=== PATIENT | male | born 1955 | race Caucasian/White ===

== ENCOUNTER 2024-04-03 11:20 | Inpatient (IN) | payer MEDICARE, OTHER, SELFPAY ==
[2024-04-03 03:06] VITALS: BMI 23.2
[2024-04-03 03:12] VITALS: BP 154/84
[2024-04-03 04:20] LABS: % Basophils 0.5 % (0-2); % Eosinophils 2.8 % (0-6); % Immature Granulocytes 0.2 % (0-0.5); % Lymphocytes 19.9 % (20.5-51.1); % Monocytes 8.5 % (1.7-9.3); % Neutrophils 68.1 % (42.2-75.2); Absolute Eosinophils 0.2 10^3/uL (0-0.7); Absolute Lymphocytes 1.2 10^3/uL (1.2-3.4); Absolute Monocytes 0.5 10^3/uL (0.1-0.6); Hemoglobin 15.9 g/dL (13.0-18.0); Mean Corp Hgb Conc. 35.3 g/dL (33.0-37.0); Mean Corpuscular Hgb 32.9 pg (27.0-31.0); Mean Platelet Volume 9.2 fL (7.4-10.4); Nucleated Red Blood Cells % 0 % (-); Platelet Count 176 10^3/uL (130-400); Red Blood Cell Count 4.84 10^6/uL (4.70-6.10); Red Cell Dist. Width 12.6 % (11.5-14.5); White Blood Cell Count 5.8 10^3/uL (4.8-10.8)
[2024-04-03 04:23] LABS: Urine Albumin Trace (Neg - Trace); Urine Bilirubin 1+ (Negative); Urine Character Clear (Clear); Urine Glucose Negative (Negative); Urine Ketone Trace (Negative); Urine Leukocyte Negative (Negative); Urine Nitrite Negative (Negative); Urine Occult Blood Negative (Negative); Urine Urobilinogen 1+ (Neg - 1+)
[2024-04-03 04:25] LABS: Urine Color Amber
[2024-04-03 04:29] LABS: ALT (SGPT) 14 U/L (0-50); AST (SGOT) 26 U/L (17-59); Albumin 4.6 g/dl (3.5-5.0); Alkaline Phosphatase 60 U/L (38-126); Blood Urea Nitrogen 27 mg/dl (9-20); Carbon Dioxide 29 mmol/L (22-30); Chloride 101 mmol/L (98-107); Estimated Creatinine Clearance 78 ml/min; Glucose 109 mg/dl (70-99); Lipase 66 U/L (23-300); Sodium 139 mmol/L (135-145); Total Bilirubin 1.1 mg/dl (0.2-1.3); Total Protein 6.9 g/dl (6.3-8.2); eGFR > 60.00
--- NOTE | 2024-04-03 06:22 | ED.GENMED ---
History of Present Illness
<Holli Queen MD, Resident - Last Filed: 04/03/24 10:27>
General
Chief Complaint: Abdominal Pain
Time Seen by Provider: 04/03/24 06:02
History of Present Illness
History of Present Illness:
68 year old male with history of bowel resection 4-5 years ago, HLD, CAD s/p stent placement, Parkinson's disease present to ED with diffuse abdominal pain more on the LLQ. Patient states that after bowel resection he has been having these bouts of
intermittent abdominal pain for around 4-5 hours couple days a week which subsides on its own. Patient states that pain started on last Tuesday, the pain was accompanies with nausea but no vomiting. The past last for 4-5 days with pain scale of 7/10.
Last night at 10 pm the pain restarted and was 9/10, he felt nauseas as well. This is what prompted him to ED. He states that pain has improved now after passing gas. He takes Miralax daily for constipation. Patient has had extensive work up for
abdominal pain. He had colonoscopy which was unremarkable. Patient has seen Dr Pratt and a GI physician for abdominal pain. He was told since everything in the bowel looks good with no evidence of bowel necrosis or infection, the pain might be due
to Parkinson's disease.
Past History
<Holli Queen MD, Resident - Last Filed: 04/03/24 10:27>
Past History
ED Past Medical History: CAD, GERD, HTN, Hypercholesterolemia, [place], Other (Parkinson's), Other (BPH) and Other (Small bowel obstructions)
ED Past Surgical History: Bowel resection (Emergent laparotomy for closed loop obstruction 08/26/2018), Cardiac (PTCA with stent to the circumflex March 2006), Orthopedic and Other (Right inguinal hernia repair August 2018)
Social History
Tobacco: Non-smoker
Alcohol: Occasional
Personal:
Living: with family
Employment: Employed
Family History
Family History: Other (Noncontributory)
Review of Systems
<Holli Queen MD, Resident - Last Filed: 04/03/24 10:27>
Review of Systems
ABD/GI: Reports abdominal pain and nausea
Phy Exam
<Holli Queen MD, Resident - Last Filed: 04/03/24 10:27>
General Physical Exam
General Presentation: no apparent distress
Cardiovascular Exam
Cardiovascular Exam: regular rate/rhythm
Pulmonary Exam
Pulmonary Exam: lungs clear
Gastrointestinal Exam
Gastrointestinal Exam: normal bowel sounds, guarding and tender (LLQ)
Course
<Holli Queen MD, Resident - Last Filed: 04/03/24 10:27>
Orders/Labs/Results
Orders:
Orders
04/03/24 03:41
IV Insert/Care/Rem.- Treatment PRN
04/03/24 03:51
Complete Blood Count/With Diff Urgent
Comprehensive Metabolic Panel Urgent
Lipase Urgent
Urinalysis Reflex To Culture Urgent
Date Specimen was Collected: 04/03/24
Time Specimen was Collected: 03:42
04/03/24 03:54
Lactate Level [Lactic Acid] Urgent
04/03/24 06:38
Electrocardiogram (*1) Urgent
Reason for Study: Other
Other Reason for Exam: screeninig for CAD due to abdominal pain and risk factors
EKG- Treatment ONCE
0.9% Sodium Chloride 250 ml [Nss] 250 ml IV BOLUS
04/03/24 06:39
CT Abd/pel W Iv And Oral Contr Urgent
Comment:
Reason For Exam: possible bowel obstruction
Iohexol [Omnipaque] See Protocol PO NOW STA
04/03/24 06:55
0.9% Sodium Chloride 1000 ml [Nss] 1,000 ml IV BOLUS
Abnormal Lab Results
04/03/24
03:51
MCH 32.9 H pg
(27.0-31.0)
Lymphocytes % 19.9 L %
(20.5-51.1)
BUN 27 H mg/dl
(9-20)
Glucose 109 H mg/dl
(70-99)
Urine Ketones Trace A
(Negative)
Urine Bilirubin 1+ A
(Negative)
04/03/24 03:51
04/03/24 03:51
Vital Signs
Initial and Last Documented VS:
Initial Vital Signs
Temp Pulse Resp BP Pulse Ox
97.6 F 55 28 154/84 98
04/03/24 03:12 04/03/24 03:12 04/03/24 03:12 04/03/24 03:12 04/03/24 03:12
Last Documented Vital Signs
Temp Pulse Resp BP Pulse Ox
97.6 F 55 28 154/84 98
04/03/24 03:12 04/03/24 03:12 04/03/24 03:12 04/03/24 03:12 04/03/24 03:12
<Jeramy Gunter, DO - Last Filed: 04/03/24 07:00>
Orders/Labs/Results
Orders:
Orders
04/03/24 03:41
IV Insert/Care/Rem.- Treatment PRN
04/03/24 03:51
Complete Blood Count/With Diff Urgent
Comprehensive Metabolic Panel Urgent
Lipase Urgent
Urinalysis Reflex To Culture Urgent
Date Specimen was Collected: 04/03/24
Time Specimen was Collected: 03:42
04/03/24 03:54
Lactate Level [Lactic Acid] Urgent
04/03/24 06:38
Electrocardiogram (*1) Urgent
Reason for Study: Other
Other Reason for Exam: screeninig for CAD due to abdominal pain and risk factors
EKG- Treatment ONCE
0.9% Sodium Chloride 250 ml [Nss] 250 ml IV BOLUS
04/03/24 06:39
CT Abd/pel W Iv And Oral Contr Urgent
Comment:
Reason For Exam: possible bowel obstruction
Iohexol [Omnipaque] See Protocol PO NOW STA
04/03/24 06:55
0.9% Sodium Chloride 1000 ml [Nss] 1,000 ml IV BOLUS
Abnormal Lab Results
04/03/24
03:51
MCH 32.9 H pg
(27.0-31.0)
Lymphocytes % 19.9 L %
(20.5-51.1)
BUN 27 H mg/dl
(9-20)
Glucose 109 H mg/dl
(70-99)
Urine Ketones Trace A
(Negative)
Urine Bilirubin 1+ A
(Negative)
04/03/24 03:51
04/03/24 03:51
Vital Signs
Initial and Last Documented VS:
Initial Vital Signs
Temp Pulse Resp BP Pulse Ox
97.6 F 55 28 154/84 98
04/03/24 03:12 04/03/24 03:12 04/03/24 03:12 04/03/24 03:12 04/03/24 03:12
Last Documented Vital Signs
Temp Pulse Resp BP Pulse Ox
97.6 F 55 28 154/84 98
04/03/24 03:12 04/03/24 03:12 04/03/24 03:12 04/03/24 03:12 04/03/24 03:12
<Holli Queen MD, Resident - Last Filed: 04/03/24 10:27>
*Critical Care Note
Total Time (30-74mins, 75-104mins- exclusive of procedures): Not Applicable
<Holli Queen MD, Resident - Last Filed: 04/03/24 10:27>
Update Note
Update Note:
68 year old male presents to the ED with diffuse abdominal pain ongoing since 3 am, now has improved a little with passing flatus.
D/D : 1. bowel obstruction- more likely
2. Acute diverticulitis
3. CAD less likely
-CT scan of the abdomen and pelvis with IV contrast
-IV fluids given
IMPRESSION:
1). Low grade partial small bowel obstruction. There is small bowel anastomosis in the right lower quadrant which may be the site of partial obstruction.
2). There is large volume feces throughout the colon and rectum suggesting constipation.
3). Thoracolumbar scoliosis with multilevel lumbar degenerative disc disease
-Admit patient to the floors. Informed the hospitalist and colorectal surgeon.
ED Attending Note
<Holli Queen MD, Resident - Last Filed: 04/03/24 10:27>
-
Portions of this chart may have been created with voice recognition software.� Occasional wrong word or��sound alike� substitutions may have occurred due to the inherent limitations of voice recognition software.
<Jeramy Gunter DO - Last Filed: 04/03/24 07:00>
ED Attending Note
Patient seen and examined by attending physician: Yes
I performed the substantive portion of visit, reviewed & personally made and approve the management plan that is documented in note by myself or JAREK.: Yes
I performed a history and physical exam of patient and discussed management with resident, I reviewed resident's note and agree with documented findings and plan of care.: Yes
ED Attending Note:
Seen with family practice resident examined independently agree with assessment and plan 68-year-old male status post bowel resection by Dr. Pratt, had a follow-up laparoscopy turned to an open procedure by Dr. Denton, with no scar tissue
apparently, followed up with GI for scope, he is getting recurrent lower abdominal pains for years, most severe few hours ago no vomiting feeling a bit better now, plan will be labs CT scan
Discharge Plan
Departure
Patient Disposition: Admit
Date of Disposition: 04/03/24
Time of Disposition: 10:04
Presentation/result/management discussed w/ accepting MD/DO: Hospitalist
Discharge Problem:
Small bowel obstruction
Prescriptions:
No Action
tamsulosin 0.4 MG capsule
0.4 mg PO BID
Fish Oil 1 EACH capsule,delayed release(DR/EC)
4 cap PO DAILY
rasagiline 1 MG tablet
1 mg PO DAILY
Praluent Pen 75 MG/ML pen injector
150 mg SC Q2W
pantoprazole 40 MG tablet,delayed release (DR/EC)
40 mg PO HS
Refresh Classic (PF) 10 DROPS dropperette
1 drops BOTH EYES TID
multivitamin with folic acid [Tab-A-Goldie] 1 TABLET tablet
1 tab PO DAILY
amantadine HCl 100 MG capsule
200 mg PO BID
polyethylene glycol 3350 17 GRAMS powder in packet
17 grams PO DAILY@1500
loratadine 10 MG tablet
10 mg PO DAILY@1500
aspirin 81 MG tablet,delayed release (DR/EC)
81 mg PO HS
amlodipine 5 mg tablet
5 mg PO DAILY Qty: 30 11RF
carbidopa-levodopa 10-100 mg Tablet
1 tab PO TID
Referrals:
UNKNOWN - PT DOES,NOT KNOW [Family Provider] -
Interventions
Interventions:
*Risk Screen - Suicide Last Done: 04/03/24 03:12
*General Assessment Last Done: 04/03/24 03:35
*Neglect/Abuse Screening Last Done: 04/03/24 03:12
ED- Fall Risk Assessment Last Done: 04/03/24 03:35
*ED COVID-19 Vaccine History Last Done: 04/03/24 03:35
PG-Peurdh-Fikrjmrhwp Assessment Last Done: 04/03/24 03:35
Discharge Date and Time
Print Language: CZECH
[2024-04-03] MEDS: OMNIPAQUE 50 ML PO (06:51)
[2024-04-03] MEDS: NSS 1000 IV (07:44)
[2024-04-03 10:40] VITALS: BP 178/93
--- NOTE | 2024-04-03 11:02 | HPS.HSE ---
Family Physician
-
Family Physician: NOT KNOW UNKNOWN - PT DOES
Chief Complaint
-
abdominal pain, nausea
History of Present Illness
68-year-old male with past medical history of CAD, GERD, hypertension, hyperlipidemia, [place], Parkinson's disease, BPH, small bowel obstruction, bowel resection came to the hospital with intermittent episodes of abdominal pain along with nausea. Per
patient he has been having intermittent periods of similar symptoms however now it appears persistent. Patient was seen by PCP and GI for abdominal pain and was told that this could be secondary to his Parkinson's disease. Currently he does have
abdominal pain with nausea. Denies any shortness of breath. Denies any chest pain.
Medical History
Past Medical History
Past Medical History: Reports Other (CAD, GERD, HTN, Hypercholesterolemia, [place], Other (Parkinson's), Other (BPH) and Other (Small bowel obstructions))
Past Surgical History: Reports Other (Bowel resection (Emergent laparotomy for closed loop obstruction 08/26/2018), Cardiac (PTCA with stent to the circumflex March 2006), Orthopedic and Other (Right inguinal hernia repair August 2018))
Social History
Tobacco: Non-smoker
Alcohol: Occasional
Family History
Family History: Not pertinent
Allergies / Home Medications
Allergies reflects when Allergies were last updated in [facility].
Home Medications with original date entered in [facility]
Allergy/Medication List:
Allergies
Allergy/AdvReac Type Severity Reaction Status Date / Time
rosuvastatin calcium Allergy elevated Verified 04/03/24 03:15
[From Crestor] liver
enzymes
Jloslgl-DKT-XlH Reductase Allergy Elevated Verified 04/03/24 03:15
Inhibitor LFTS
[Itarssh-Cfz-Ney Reductase
Inhibitor]
Home Medications
fksrx-5n-owx-epa-fish oil 120 mg-180 mg-60 mg-1,200 mg capsule, DR (Fish Oil) 4 cap PO DAILY Supplement 03/05/14
tamsulosin 0.4 mg capsule 0.4 mg PO BID Urinary Issue 03/05/14
rasagiline 1 mg tablet 1 mg PO DAILY Neurological Condition 08/25/18
pantoprazole 40 mg tablet,delayed release 40 mg PO QPM Gastrointestinal Issue 09/21/18
polyvinyl alcohol-povidone (PF) 1.4 %-0.6 % eye drops in a dropperette (Refresh Classic (PF)) 1 drops BOTH EYES TID Eye Condition 09/21/18
amantadine HCl 100 mg capsule 200 mg PO BID Neurological Condition 05/25/21
loratadine 10 mg tablet 10 mg PO NOON Allergies 05/25/21
polyethylene glycol 3350 17 gram oral powder packet 17 grams PO DAILY Constipation 05/25/21
aspirin 81 mg tablet,delayed release 81 mg PO HS Blood Clot Prevention/Tx 07/21/21
alirocumab 150 mg/mL subcutaneous pen injector (Praluent Pen) 150 mg SC Q2W High Cholesterol 04/03/24
calcium polycarbophil 625 mg tablet (FiberCon) 5,000 mg PO HS Supplement 04/03/24
carbidopa 25 mg-levodopa 100 mg tablet 1 tab PO AC Neurological Condition 04/03/24
therapeutic multivitamin 1 tab PO DAILY Supplement 04/03/24
Review of Systems
-
History Source: Patient
A 12 point ROS was completed and negative except as noted: Yes
Abdomen/GI: Reports Abdominal Pain and Nausea
Physical Exam
Vital Signs
Vital Signs
Temp Pulse Resp BP Pulse Ox
97.6 F 48 18 178/93 100
04/03/24 10:40 04/03/24 10:40 04/03/24 10:40 04/03/24 10:40 04/03/24 10:40
Physical Exam
General: Well Nourished and No Apparent Distress
HEENT: NormoCephalic and Anicteric
Respiratory: Clear; No Wheezes
Cardiac: S1/S2 and Regular Rhythm
Breast: Deferred by me
GI: Soft, Non Distended and Tender
Genito-urinary: Deferred by me
Musculoskeletal: No Edema
Neuro: Awake, Alert, Oriented and AO x 3
Psych: Calm and Intact Judgment/Insight
Laboratory Results
-
04/03/24 03:51
04/03/24 03:51
Laboratory Results
Lactic Acid 1.0 mmol/L (0.7-2.0) 04/03/24 03:54
Total Bilirubin 1.1 mg/dl (0.2-1.3) 04/03/24 03:51
AST 26 U/L (17-59) 04/03/24 03:51
ALT 14 U/L (0-50) 04/03/24 03:51
Alkaline Phosphatase 60 U/L (38-126) 04/03/24 03:51
Lipase 66 U/L (23-300) 04/03/24 03:51
Data Reviewed
-
CT Scan: Report Reviewed by me and Discussed with Patient
Lab Data: Labs Reviewed by me and Discussed with Patient
Impression/Plan
-
Abdominal pain and nausea secondary to partial small bowel obstruction
History of bowel resection, emergent laparotomy for closed-loop obstruction
N.p.o.
Sees Dr. Pratt from colorectal surgery outpatient, consult colorectal
You develop vomiting then will need NG tube
Antiemetics
Also does appear to be constipated, laxatives if okay with colorectal
History of CAD status post stent 2005
Continue to monitor
Aspirin if okay with colorectal
Essential hypertension
Currently not on any medications
Add hydralazine as needed
GERD
Protonix IV
History of Parkinson's
Continue with home meds
BPH
DVTppx
SCD's
Full code
I spent a total of 76 minutes with the patient or on the floor. More than 50% of this time involved counseling and coordination of care.
[2024-04-03 13:13] VITALS: BP 179/91
--- NOTE | 2024-04-03 13:14 | EDRN ---
Surgeon Dr. Pratt in room w/ pt at this time.
--- NOTE | 2024-04-03 13:57 | CON.CRS ---
Consultation
-
Date/Time Consultation Requested: 04/03/24 @12:03
Date/Time Consultation Performed: 04/03/24 @13:00
Requesting Provider: Harry Castillo MD
Performing Provider: Jose E Pratt MD
Reason for Consultation: Partial small bowel obstruction
Medical History
-
Chief Complaint: Abdominal pain
History of Present Illness:
68-year-old male well-known today after going an emergency laparotomy for a small bowel obstruction in 2017. At the time of surgery there was a closed-loop obstruction from an adhesive band in the right lower quadrant. He had not undergone any
previous abdominal surgery and a segment of small bowel was ischemic but not perforated. His initial recovery was uncomplicated but about 2 weeks later he developed an incarcerated right inguinal hernia; nothing was resected and the hernia was
repaired with mesh. Over the years he has had issues with constipation and cramping. An upper GI series in 2019 revealed a normal anastomosis. In 2020 he underwent a laparoscopy converted to laparotomy by Dr. Denton for a small bowel
obstruction but at the time of surgery there were no adhesions and the anastomosis appeared normal.
In the interim he was diagnosed with Parkinson's disease and has had issues with constipation. Every month or 2 he develops lower abdominal cramps for several hours but then it resolves. He does move his bowels pretty much daily and they are soft
while taking MiraLAX. Last week he had an episode of hard stools and this week he had a couple of episodes of abdominal cramps, the most recent was associated with nausea prompting him to come to the ED. At present he has no cramps he denies any
nausea but does not have an appetite. He is able to drink liquids without any difficulty and he is passing flatus. He had a recent bowel movement while in the ED he denies any bleeding. He denies any sense of abdominal distention. A colonoscopy
in [address] 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 The exam was otherwise without abnormality.
While in the ED he has been afebrile vital signs are normal. His white count is 5.8 and I personally reviewed the CT scan of the abdomen and pelvis with contrast. It reveals a large amount of stool throughout the entire colon and rectum without an
impaction and some dilatation of the small bowel up to 3.1cm. There is no free fluid, bowel wall thickening, or pneumatosis.
Past Medical History
Past Medical History: CAD, GERD, HTN, Hypercholesterolemia, [place] and Other (Parkinsons, BPH)
Past Surgical History: Bowel Resection (as per the HPI), Cardiac (PTCA 2005), Hernia Repair (as per the HPI) and Orthopedic
Social History
Tobacco: Non-Smoker
Alcohol: Occasional
Drug: None
Personal:
Living: With Family
Employment: Employed
Family History
Family History: Reviewed & Not Pertinent
Allergies / Home Medications
Allergy/AdvReac Type Severity Reaction Status Date / Time
rosuvastatin calcium Allergy elevated Verified 04/03/24 03:15
[From Crestor] liver
enzymes
Hlhjiuz-SYT-FeX Reductase Allergy Elevated Verified 04/03/24 03:15
Inhibitor LFTS
[Zskkmwj-Tuk-Vta Reductase
Inhibitor]
�Medication �Instructions �Recorded �Confirmed �Type
wytaz-4f-tbj-epa-fish oil 120 4 cap PO DAILY Supplement 03/05/14 04/03/24 History
mg-180 mg-60 mg-1,200 mg capsule,
DR (Fish Oil)
tamsulosin 0.4 mg capsule 0.4 mg PO BID Urinary Issue 03/05/14 04/03/24 History
rasagiline 1 mg tablet 1 mg PO DAILY Neurological 08/25/18 04/03/24 History
Condition
pantoprazole 40 mg tablet,delayed 40 mg PO QPM Gastrointestinal Issue 09/21/18 04/03/24 History
release
polyvinyl alcohol-povidone (PF) 1 drops BOTH EYES TID Eye Condition 09/21/18 04/03/24 History
1.4 %-0.6 % eye drops in a
dropperette (Refresh Classic (PF))
amantadine HCl 100 mg capsule 200 mg PO BID Neurological 05/25/21 04/03/24 History
Condition
loratadine 10 mg tablet 10 mg PO NOON Allergies 05/25/21 04/03/24 History
polyethylene glycol 3350 17 gram 17 grams PO DAILY Constipation 05/25/21 04/03/24 History
oral powder packet
aspirin 81 mg tablet,delayed 81 mg PO HS Blood Clot 07/21/21 04/03/24 History
release Prevention/Tx
alirocumab 150 mg/mL subcutaneous 150 mg SC Q2W High Cholesterol 04/03/24 04/03/24 History
pen injector (Praluent Pen)
calcium polycarbophil 625 mg 5,000 mg PO HS Supplement 04/03/24 04/03/24 History
tablet (FiberCon)
carbidopa 25 mg-levodopa 100 mg 1 tab PO AC Neurological Condition 04/03/24 04/03/24 History
tablet
therapeutic multivitamin 1 tab PO DAILY Supplement 04/03/24 04/03/24 History
Review of Systems
-
History Source: Patient
All other systems: Negative unless noted
A 10 point review of systems was completed, and was negative except as per HPI.
Physical Exam
Vital Signs
Temp 97.6 F 04/03/24 10:40
Pulse 47 04/03/24 13:13
Resp Rate 16 04/03/24 13:13
Blood pressure 179/91 04/03/24 13:13
SaO2 98 04/03/24 13:13
04/02/24 04/03/24 04/04/24
06:59 06:59 06:59
Actual Weight 65.2 kg
Body Mass Index (BMI) 23.2
Lab Results / Allergies
04/03/24 03:51
04/03/24 03:51
WBC 5.8 10^3/uL (4.8-10.8) 04/03/24 03:51
Hgb 15.9 g/dL (13.0-18.0) 04/03/24 03:51
Hct 45.0 % (39.0-52.0) 04/03/24 03:51
Plt Count 176 10^3/uL (130-400) 04/03/24 03:51
Abs Immat Gran (auto) 0.0 10^3/uL (0-0.05) 04/03/24 03:51
Neutrophils % 68.1 % (42.2-75.2) 04/03/24 03:51
Allergy/AdvReac Type Severity Reaction Status Date / Time
rosuvastatin calcium Allergy elevated Verified 04/03/24 03:15
[From Crestor] liver
enzymes
Rcsitmn-KWW-JtK Reductase Allergy Elevated Verified 04/03/24 03:15
Inhibitor LFTS
[Nsguezs-Cxs-Bez Reductase
Inhibitor]
Physical Exam
General: Well Developed, Well Nourished and No Apparent Distress
HEENT: Anicteric
GI: Soft, Non Tender and Non Distended
Musculoskeletal: No Edema
Neuro: Awake and Alert
Data Reviewed
-
CT Scan: Image Personally Visualized and interpreted, Discussed with Physician and Discussed with Patient
Labs: Labs Reviewed by me and Discussed with Patient
Assessment / Plan
-
Constipation versus a low-grade partial small bowel obstruction.
I reviewed the current finding with the patient discussed the treatment options. There is no indication for surgery at this time. His anastomosis has been evaluated radiographically and during surgery in the past and it appeared normal.
I recommend clear liquids and some oral laxatives and advised him to go slow. I advised him to stop drinking the laxative if he develops significant cramps, distention, or nausea or vomiting. If his symptoms improve following the prep, I have
asked Dr. Keenan from gastroenterology to see in hopes of a regimen to treat his constipation which is due, at least in part, to the Parkinson's and medications. If his symptoms worsen, or do not improve, further evaluation and possible surgery will
follow.
[2024-04-03 14:58] VITALS: BP 163/91
[2024-04-03 14:59] VITALS: BMI 21.3
--- NOTE | 2024-04-03 15:22 | CON.GI ---
Addendum entered and electronically signed by Radha Restrepo MD 04/03/24 17:03:
Discussed with Dr. Pratt will get obstruction series in a.m. and hold on small bowel follow-through for now
Addendum entered and electronically signed by Radha Restrepo MD 04/03/24 16:59:
I saw and examined the patient.
The ROUTE SALES REPRESENTATIVE's note was reviewed and I agree with the note.
Comment: This is a 68-year-old male with past medical history of Parkinson's, chronic constipation and also history of small bowel obstruction in 2018 secondary to adhesive band status post resection and then had repair of incarcerated inguinal
hernia with mesh 2 weeks later and in 2020 had recurrent small bowel obstruction and had a laparotomy anastomosis appeared normal at that time. He now presents with increasing abdominal pain with nausea for the past 2 to 3 days with worsening pain
last night and CT shows probable low-grade partial small bowel bowel obstruction probably at the site of prior small bowel anastomosis and constipation. He has been using MiraLAX daily and fiber supplements for constipation he usually has a bowel
movement daily but sometimes experiences incomplete evacuation with straining and bloating.
Assessment and plan 1. Worsening abdominal pain with nausea and slight abdominal distention likely secondary to recurrent partial small bowel obstruction versus chronic constipation and ileus. His small bowel anastomosis has been evaluated in the
past and no evidence of stenosis was noted. Noted input from Dr. Pratt patient receiving 2 L of GoLytely today for constipation and given that he has been having abdominal bloating and incomplete relief with MiraLAX and fiber at home will start him
on Linzess tomorrow at 145 mcg and increase to 290 mcg if needed and I told him to maybe hold the fiber and MiraLAX which may be making his bloating worse. Will discuss with Dr. Pratt to see if there is any role for repeat small bowel
follow-through to rule out any adhesions and also evaluate the anastomosis. His abdominal exam is benign currently with mild left lower quadrant pain with good bowel sounds. If he does have worsening pain or nausea vomiting then may require repeat
surgery. Also may need enema or suppository he wants to hold on it for now.
Original Note:
Consultation
-
Date/Time Consultation Requested: 04/03/24 @ 12:03
Date/Time Consultation Performed: 04/03/24 @ 15:00
Requesting Provider: Dr. Castillo
Performing Provider: VANESSA Huntley; Dr. Radha Restrepo
Reason for Consultation: partial SBO, constipation
Medical History
Chief Complaint / HPI
Chief Complaint: abdominal pain, nausea
History of Present Illness:
The pt is a 68yo male with a PMH significant for history of recurrent small bowel obstructions with initial small bowel obstruction status postresection initially in 2018 with pathology consistent with ischemic bowel and subsequent incarcerated
right inguinal hernia with mesh, CAD, GERD, hypertension, hyperlipidemia, Parkinson's disease on carbidopa levodopa, BPH, chronic constipation, who presented to the emergency room with complaints of abdominal pain and nausea found to have a
low-grade partial small bowel obstruction with stable appearing prior small bowel anastomosis in the right lower quadrant. Also findings of a large volume of feces throughout the colon and rectum suggesting constipation. We request evaluate for
management of constipation. The patient reports that he has had intermittent bowel obstructions over the course of several years, dating back to his initial small bowel obstruction in 2018 as above. He notes about every 5 to 6 weeks he will
develop a discomfort/crampiness in his lower abdomen that is typically associated with nausea. He usually will adjust his diet and after several days this will subside. He denies any overt vomiting. He notes that he takes MiraLAX 1 capful daily
chronically for constipation and this provides a formed bowel movement typically on a daily basis. He denies any overtly hard stools or small stools but does report the stool falls apart in the toilet. He on occasion will skip a day of a bowel
movement but this depends on what he eats. He denies any melena or hematochezia, but will notice a small amount of red blood on occasion if he is straining. Does admit to prolonged toileting. He also admits to gassiness with some intermittent
bloating on a fairly regular basis although he reports he just deals with this. He otherwise denies any unintentional weight loss, loss of appetite, fevers, chills, chest pain, shortness of breath, lightheadedness, dizziness, or syncope. He denies
use of narcotics. He does take Advil on a very rare occasion. He notes symptoms started about 2 prior to admission with nausea without vomiting. He again developed the similar left lower quadrant cramping although this was more severe than his
normal episodes. He reports very infrequent alcohol use. He is a non-smoker. His last endoscopy was done in 2015 which showed gastritis otherwise negative biopsies. He had a colonoscopy in [address] Scott which showed a redundant colon
otherwise normal with no polyps. Noted that he has had some intermittent ER evaluations for bowel obstructions that usually resolve without surgical intervention. Upon initial evaluation he underwent a CT scan as above. Labs essentially
unrevealing. He was evaluated by colorectal surgery who suspected that his main issue upon admission was actually constipation and he was ordered a bowel cleanout with Colyte. He was placed on a clear liquid diet and we are being asked to evaluate
for further management of constipation
Past Medical History
Past Medical History: CAD, GERD, HTN, Hypercholesterolemia and Other (Small bowel obstruction with history of resection in 2018, history of inguinal hernia with incarceration and repair, Parkinson's disease)
Past Surgical History: Bowel Resection (Small bowel resection as per HPI), Cardiac (Cardiac stent), Orthopedic (Left shoulder surgery, left hand surgery, hip surgery x 3) and Other (Inguinal hernia repair as per HPI)
Social History
Tobacco: Non-Smoker
Alcohol: Occasional
Drug: None
Personal:
Living: With Family
Family History
Family History: Cancer (Paternal uncle with colon cancer)
Allergies / Home Medications
Allergy/AdvReac Type Severity Reaction Status Date / Time
rosuvastatin calcium Allergy elevated Verified 04/03/24 03:15
[From Crestor] liver
enzymes
Mgyheix-DSQ-KwN Reductase Allergy Elevated Verified 04/03/24 03:15
Inhibitor LFTS
[Hmwmobs-Mzr-Dke Reductase
Inhibitor]
�Medication �Instructions �Recorded
sxubq-1q-fcq-epa-fish oil 120 4 cap PO DAILY Supplement 03/05/14
mg-180 mg-60 mg-1,200 mg capsule,
DR (Fish Oil)
tamsulosin 0.4 mg capsule 0.4 mg PO BID Urinary Issue 03/05/14
rasagiline 1 mg tablet 1 mg PO DAILY Neurological 08/25/18
Condition
pantoprazole 40 mg tablet,delayed 40 mg PO QPM Gastrointestinal Issue 09/21/18
release
polyvinyl alcohol-povidone (PF) 1 drops BOTH EYES TID Eye Condition 09/21/18
1.4 %-0.6 % eye drops in a
dropperette (Refresh Classic (PF))
amantadine HCl 100 mg capsule 200 mg PO BID Neurological 05/25/21
Condition
loratadine 10 mg tablet 10 mg PO NOON Allergies 05/25/21
polyethylene glycol 3350 17 gram 17 grams PO DAILY Constipation 05/25/21
oral powder packet
aspirin 81 mg tablet,delayed 81 mg PO HS Blood Clot 07/21/21
release Prevention/Tx
alirocumab 150 mg/mL subcutaneous 150 mg SC Q2W High Cholesterol 04/03/24
pen injector (Praluent Pen)
calcium polycarbophil 625 mg 5,000 mg PO HS Supplement 04/03/24
tablet (FiberCon)
carbidopa 25 mg-levodopa 100 mg 1 tab PO AC Neurological Condition 04/03/24
tablet
therapeutic multivitamin 1 tab PO DAILY Supplement 04/03/24
Review of Systems
-
History Source: Patient
Constitutional: Reports No Symptoms
EENT: Reports No Symptoms
Respiratory: Reports No Symptoms
Cardiac: Reports No Symptoms
Abdomen/GI: Reports Abdominal Pain and Nausea
: Reports No Symptoms
Musculoskeletal: Reports No Symptoms
Skin: Reports No Symptoms
Neurological: Reports No Symptoms
Vital Signs
Temp Pulse Resp BP Pulse Ox
97.5 F 57 18 163/91 92
04/03/24 14:58 04/03/24 14:58 04/03/24 14:58 04/03/24 14:58 04/03/24 14:58
Physical Exam
Exam
General: Well Developed, Well Nourished, No Apparent Distress and Comfortable
HEENT: Normocephalic, Anicteric and Atraumatic
Respiratory: Clear
Cardiac: S1/S2 and Regular Rhythm
Breast: N/A
GI: Soft, Non Tender, Non Distended and Normal Bowel Sounds
Musculoskeletal: No Edema
Skin: Warm and Dry
Neuro: Awake, Alert, Oriented and AO x 3
Hematologic/Lymphatic: Lymphadenopathy
Psych: Calm
Results
WBC 5.8 10^3/uL (4.8-10.8) 04/03/24 03:51
Hgb 15.9 g/dL (13.0-18.0) 04/03/24 03:51
Hct 45.0 % (39.0-52.0) 04/03/24 03:51
MCV 93.0 fL (80.0-94.0) 04/03/24 03:51
Plt Count 176 10^3/uL (130-400) 04/03/24 03:51
Absolute Neuts (auto) 4.0 10^3/uL (1.4-6.5) 04/03/24 03:51
Sodium 139 mmol/L (135-145) 04/03/24 03:51
Potassium 4.0 mmol/L (3.5-5.1) 04/03/24 03:51
Chloride 101 mmol/L (98-107) 04/03/24 03:51
Carbon Dioxide 29 mmol/L (22-30) 04/03/24 03:51
BUN 27 mg/dl (9-20) H 04/03/24 03:51
Creatinine 0.8 mg/dL (0.7-1.3) 04/03/24 03:51
Calcium 10.0 mg/dl (8.4-10.2) 04/03/24 03:51
Total Bilirubin 1.1 mg/dl (0.2-1.3) 04/03/24 03:51
AST 26 U/L (17-59) 04/03/24 03:51
ALT 14 U/L (0-50) 04/03/24 03:51
Alkaline Phosphatase 60 U/L (38-126) 04/03/24 03:51
Lipase 66 U/L (23-300) 04/03/24 03:51
Diagnostic Image Results:
04/03/24 CT A/P w/IV and oral contrast:
1). Low grade partial small bowel obstruction. There is small bowel anastomosis in the right lower quadrant which may be the site of partial obstruction.
2). There is large volume feces throughout the colon and rectum suggesting constipation.
3). Thoracolumbar scoliosis with multilevel lumbar degenerative disc disease
Prior GI Procedures:
EGD: 09/02/2016 Dr. Scott: Z-line irregular, 38 cm from the incisors. Biopsied.
- Acute gastritis. Biopsied.
- Normal 3rd part of the duodenum. Biopsied.
Colonoscopy: 01/2022 Dr. Scott: The perianal and digital rectal examinations were normal. The colon (entire examined portion) was moderately redundant. 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
Assessment / Plan
-
The pt is a 68yo male with a PMH significant for history of recurrent small bowel obstructions with initial small bowel obstruction status postresection initially in August 2018 with pathology consistent with ischemic bowel (without perforation )
and subsequent incarcerated right inguinal hernia with mesh repair 2 weeks later, CAD, GERD, hypertension, hyperlipidemia, Parkinson's disease on carbidopa levodopa, BPH, chronic constipation, who presented to the emergency room with complaints of
abdominal pain and nausea found to have a low-grade partial small bowel obstruction with stable appearing prior small bowel anastomosis in the right lower quadrant. Also findings of a large volume of feces throughout the colon and rectum suggesting
constipation. We request evaluate for management of constipation. He has had intermittent history of small bowel obstructions since his initial diagnosis in 2018 with resection. He has not required any surgical intervention since 2018 although
did undergo a laparotomy in 2020 but his small bowel anastomosis at that time was widely patent and there was no evidence of adhesive disease. He presents again with recurrent symptoms concerning for small bowel obstruction with abdominal pain and
nausea. CT imaging as above showing signs of a possible low-grade partial small bowel obstruction although with a large amount of feces throughout the bowel. He does take MiraLAX on a daily basis which does promote a daily bowel movement, although
he does admit to gas and intermittent bloating at times and occasional days where he skips a bowel movement. He does admit to straining and prolonged toileting as well. His last colonoscopy was in 2021 which essentially was normal aside from a
redundant colon. He is also started on carbidopa levodopa within the last year due to history of Parkinson's. He is currently tolerating liquids and has no nausea or vomiting.
Problem list:
-Recurrent small bowel obstructions, initial episode in 2018 requiring small bowel resection, with path consistent for ischemic bowel
-Nausea
-Chronic abdominal cramping
-Chronic constipation
-Parkinson's disease
-History of incarcerated inguinal hernia with mesh repair in 2018
Recommendations:
-Etiology of his current symptoms possibly secondary to a low-grade partial small bowel obstruction versus constipation versus other.
--- CT imaging showing concern for partial small bowel obstruction although with a very large amount of stool in his colon. He does not have any significant pain on examination and his nausea has resolved.
-Per colorectal surgery will do a small bowel cleanout
-He will then need additional bowel regimen on a regular basis as it appears that MiraLAX once a day is not efficient and is causing bloating/gassiness. Can trial Linzess 145 mcg daily which she can start in the morning
-If needed to consider a Dulcolax suppository versus an enema if he does not have much improvement after the small bowel cleanout, although I feel that this will be efficient
-Ideally high-fiber diet would be beneficial for constipation but may is not a good idea given his history of recurrent small bowel obstructions.
-He should ensure adequate hydration
-Further plan pending above
Data Reviewed
-
Old Records: Reviewed
-
-
Thank you for consultation and allowing me to participate in the patient's care. Please call the telecommunications repairer GI physician during the after hours with any questions or concerns.
[2024-04-03] MEDS: NULYTELY SOLUTION 2 LITERS PO (15:58)
[2024-04-03] MEDS: NORMOSOL-R 1000 IV (16:26)
[2024-04-03] MEDS: NSS (PRESERVATIVE FREE) 10 ML IV (16:27)
[2024-04-03] MEDS: PROTONIX IV 40 MG IV (16:27)
[2024-04-03] MEDS: REFRESH EYE DROPS (PF) 1 DROPS BOTH EYES ×2 (16:28→21:15)
[2024-04-03] MEDS: SINEMET 25-100 1 TABLET PO (16:54)
[2024-04-03] MEDS: SYMMETREL 200 MG PO (21:14)
[2024-04-03] MEDS: FLOMAX 0.4 MG PO (21:14)
[2024-04-03] MEDS: ASPIR LOW (ENTERIC COATED) 81 MG PO (21:15)
[2024-04-03 23:00] VITALS: BP 141/83
[2024-04-04] MEDS: NORMOSOL-R 1000 IV (02:34)
[2024-04-04 06:00] VITALS: BMI 21.1
[2024-04-04] MEDS: LINZESS 145 MCG PO (06:18)
[2024-04-04 06:36] LABS: % Basophils 0.9 % (0-2); % Immature Granulocytes 0.2 % (0-0.5); % Lymphocytes 29.1 % (20.5-51.1); % Monocytes 8.9 % (1.7-9.3); % Neutrophils 56.9 % (42.2-75.2); Absolute Basophils 0.1 10^3/uL (0-0.2); Absolute Eosinophils 0.2 10^3/uL (0-0.7); Absolute Lymphocytes 1.7 10^3/uL (1.2-3.4); Absolute Monocytes 0.5 10^3/uL (0.1-0.6); Absolute Neutrophils 3.3 10^3/uL (1.4-6.5); Hematocrit 41.5 % (39.0-52.0); Hemoglobin 14.6 g/dL (13.0-18.0); Mean Corp Hgb Conc. 35.2 g/dL (33.0-37.0); Mean Corpuscular Hgb 32.8 pg (27.0-31.0); Mean Corpuscular Volume 93.3 fL (80.0-94.0); Mean Platelet Volume 9.6 fL (7.4-10.4); Nucleated Red Blood Cells % 0 % (-); Platelet Count 161 10^3/uL (130-400); Red Blood Cell Count 4.45 10^6/uL (4.70-6.10); Red Cell Dist. Width 12.9 % (11.5-14.5); White Blood Cell Count 5.7 10^3/uL (4.8-10.8)
[2024-04-04 07:00] VITALS: BP 153/83
[2024-04-04 07:01] LABS: Blood Urea Nitrogen 13 mg/dl (9-20); Calcium 9.1 mg/dl (8.4-10.2); Carbon Dioxide 29 mmol/L (22-30); Chloride 104 mmol/L (98-107); Estimated Creatinine Clearance 72 ml/min; Glucose 82 mg/dl (70-99); Potassium 4.1 mmol/L (3.5-5.1); Sodium 138 mmol/L (135-145); eGFR > 60.00
[2024-04-04] MEDS: PROTONIX IV 40 MG IV (07:45)
[2024-04-04] MEDS: NSS (PRESERVATIVE FREE) 10 ML IV (07:45)
[2024-04-04] MEDS: REFRESH EYE DROPS (PF) 1 DROPS BOTH EYES (07:45)
[2024-04-04] MEDS: RASAGILINE MESYLATE 1 MG PO (07:46)
[2024-04-04] MEDS: SYMMETREL 200 MG PO (07:46)
[2024-04-04] MEDS: SINEMET 25-100 1 TABLET PO ×2 (07:46→11:55)
[2024-04-04] MEDS: FLOMAX 0.4 MG PO (07:46)
--- NOTE | 2024-04-04 11:25 | W.PN.HOSP.TC ---
Addendum entered and electronically signed by Harry Castillo MD 04/04/24 13:21:
Patient tolerated diet. Discharge home
Time of discharge 38 minutes
Original Note:
Today's Communication/Plan
-
Monitor vital signs and see plan
Colorectal surgery following, advance diet to regular and if patient tolerates then discharge home
Continue Linzess
Assessment / Plan
Assessment / Plan
General: Well Nourished and No Apparent Distress
HEENT: NormoCephalic and Anicteric
Respiratory: Clear; No Wheezes
Cardiac: S1/S2 and Regular Rhythm
GI: Soft, Non Distended and non Tender
Musculoskeletal: No Edema
Neuro: Awake, Alert, Oriented and AO x 3
Psych: Calm and Intact Judgment/Insight
Abdominal pain and nausea secondary to partial small bowel obstruction
History of bowel resection, emergent laparotomy for closed-loop obstruction
CT 04/03 was consistent with partial SBO.
X-ray 04/04 improving. Colorectal advance diet to regular, if patient tolerates then can be discharged home
GI also following, started Linzess
Sees Dr. Pratt from colorectal surgery outpatient, consult colorectal
You develop vomiting then will need NG tube
Antiemetics
Also does appear to be constipated on admission, now improved with laxatives
History of CAD status post stent 2005
Continue to monitor
Aspirin if okay with colorectal
Essential hypertension
Currently not on any medications
Add hydralazine as needed
GERD
Protonix
History of Parkinson's
Continue with home meds
BPH
DVTppx
SCD's
Full code
Anticipated Discharge: Today
Subjective/Interval History
-
Date of Service: April 04, 2024
Denies Pain
Objective Data
-
Labs:
Laboratory Results
04/04/24
06:04
WBC 5.7
Hgb 14.6
Hct 41.5
Plt Count 161
Sodium 138
Potassium 4.1
Chloride 104
Carbon Dioxide 29
BUN 13
Creatinine 0.8
Glucose 82
Calcium 9.1
Vital Signs:
Vital Signs
Temp Pulse Resp BP Pulse Ox
97.7 F 50 18 153/83 97
04/04/24 07:00 04/04/24 07:00 04/04/24 07:00 04/04/24 07:00 04/04/24 07:00
I&O
04/03/24 04/04/24 04/05/24
06:59 06:59 06:59
Intake Total 240 / 240
Balance 240 / 240
--- NOTE | 2024-04-04 12:02 | W.PN.CRS1 ---
Today's Communication / Plan
-
Advance diet
Possible DC later today.
Assessment/Plan
-
Constipation versus a low-grade partial small bowel obstruction
1. Reviewed x-rays with Dr. Pratt. Contrast goes throughout the colon.
2. Patient's abdominal exam is benign and his labs are normal.
3. Will advance diet to regular. I advised patient to go slow.
4. If tolerating a diet may be discharged more perspective. Discussed with hospitalist. Follow-up as needed.
Subjective Data
Subjective Data
Date of Service: April 04, 2024
Patient states he feels well. He denies nausea or vomiting. He has bowel movements and flatus. He is tolerating clear liquids. He has no abdominal pain.
Objective Data
-
Vital Signs
Temp Pulse Resp BP Pulse Ox
97.7 F 50 18 153/83 97
04/04/24 07:00 04/04/24 07:00 04/04/24 07:00 04/04/24 07:00 04/04/24 07:00
Intake & Output
04/03/24 04/04/24 04/05/24
06:59 06:59 06:59
Intake Total 240 / 240
Balance 240 / 240
Intake:
Oral fluids 240 / 240
Other:
Number of approximated MODERATE 1
amounts of urine
Lab Results
04/04/24 06:04
04/04/24 06:04
Physical Exam
-
General: No Acute Distress and AOx3
Abdomen: Soft, Non Distended and Non Tender
Skin: Warm and Dry
--- NOTE | 2024-04-04 13:21 | W.DCSUMMARY ---
Discharge Summary
Discharge Data
Date of Admission: 04/03/24
Date of Discharge: 04/04/24
-
Pending Results: No
Hospital Course
68-year-old male with past medical history of CAD, essential hypertension, GERD, Parkinson's, BPH, history of bowel obstruction, laparotomy came to the hospital with partial small bowel obstruction. Patient was seen by colorectal surgery for
hospitalization. Patient also had some stool burden on imaging which was likely thought was secondary to his Parkinson's disease. He was also seen by gastroenterology on this hospitalization and was started on Linzess. Over time patient symptoms
continue to improve and he was able to tolerate regular diet prior to discharge. Once his symptoms improved and he was able to tolerate diet, he was then discharged home with instructions to follow-up with all his physicians outpatient.
Discharge Plan
-
Patient Disposition: Home (Routine Discharge)
Discharge Diagnosis/Procedures: Partial small bowel obstruction
Constipation
Diet: Regular
Activity: As tolerated
Driving Restrictions: As prior to admission
Bathing Restrictions: None
Referrals:
Jamal Pratt MD [Active] -
Radha Restrepo MD [Active] -
UNKNOWN - PT DOES,NOT KNOW [Family Provider] - in less than 1 week
Prescriptions:
New
Linzess 145 mcg Capsule
145 mcg PO DAILY @ 0600 Qty: 30 0RF
Continued
tamsulosin 0.4 MG capsule
0.4 mg PO BID
Fish Oil 1 EACH capsule,delayed release(DR/EC)
4 cap PO DAILY
rasagiline 1 MG tablet
1 mg PO DAILY
pantoprazole 40 MG tablet,delayed release (DR/EC)
40 mg PO QPM
Refresh Classic (PF) 10 DROPS dropperette
1 drops BOTH EYES TID
amantadine HCl 100 MG capsule
200 mg PO BID
polyethylene glycol 3350 17 GRAMS powder in packet
17 grams PO DAILY
loratadine 10 MG tablet
10 mg PO NOON
aspirin 81 MG tablet,delayed release (DR/EC)
81 mg PO HS
therapeutic multivitamin Tablet
1 tab PO DAILY
calcium polycarbophil [FiberCon] 625 mg Tablet
5,000 mg PO HS
carbidopa-levodopa 25-100 mg Tablet
1 tab PO AC
Praluent Pen 150 mg/mL Pen Injector
150 mg SC Q2W
Discharge Orders:
Discharge Patient (As Directed); Ordered 04/04/24
Ordered By: Harry Castillo
Discharge Date and Time
Discharge Date/Time: 04/04/24 14:06
Print Language: AZERI
[2024-04-04 13:25] VITALS: BP 108/57
== END 2024-04-04 14:06 | disposition home or self-care (01) | DRG 390 ==
LOC: 3 WEST ACU 11:20
PROVIDERS: Student in an Organized Health Care Education/Training Program; ADMITTING PHYSICIAN Internal Medicine; CONSULT PHYSICIAN Internal Medicine Gastroenterology; CONSULT PHYSICIAN Surgery; EMERGENCY PHYSICIAN Emergency Medicine
DX: K56.600 Partial intestinal obstruction, unspecified as to cause (principal); K59.00 Constipation, unspecified
CPT/HCPCS: 74022; 74177; 80048; 80053; 81003; 83605; 83690; 85025; 93005; 96360; 99285; Q9967

== ENCOUNTER 2024-10-24 07:18 | Emergency (ER) | payer MEDICARE, OTHER, SELFPAY ==
--- NOTE | 2024-10-24 07:20 | ED TECH ---
A STROKE ALERT was called #[id number]# @7:20 am Per .Cat Scan Notified.
--- NOTE | 2024-10-24 07:21 | ED.CVA ---
History of Present Illness
General
Chief Complaint: CVA/TIA Symptoms
Source: patient
Time Seen by Provider: 10/24/24 07:20
Onset of Stroke Symptoms
Onset of symptoms known: Yes
Date of onset of symptoms: 10/24/24
Time of onset of symptoms: 06:45
History of Present Illness
History of Present Illness:
69-year-old male brought to the emergency room by ambulance after developing headache, vertigo and some subjective right-sided weakness while working out. Patient also has nausea. Headache is bitemporal but much worse on the left. Medics state
that the patient was wide-awake when they picked him up at the gym but in the room to the hospital he seemed to be somewhat less interactive though still answering questions. Patient does have a history of Parkinson's disease. Medics noted that he
began having right-sided tremors during transport to the hospital.
Past History
Past History
ED Past Medical History: CAD, GERD, HTN, Hypercholesterolemia, DE, Other (Parkinson's), Other (BPH) and Other (Small bowel obstructions)
ED Past Surgical History: Bowel resection (Emergent laparotomy for closed loop obstruction 08/26/2018), Cardiac (PTCA with stent to the circumflex March 2006), Orthopedic and Other (Right inguinal hernia repair August 2018)
Social History
Tobacco: Non-smoker
Alcohol: Occasional
Personal:
Living: with family
Employment: Employed
Family History
Family History: Other (Noncontributory)
Phy Exam
Physical Exam
Physical Exam:
General: Awake, Alert, Oriented X3. No acute distress.
Vitals: Hypertensive
Head: Atraumatic
Eyes: Pupils equal, EOMI
Throat: Airway intact, no exudates
Neck: Trachea midline
Lungs: Clear and equal b/l
Heart: Regular rate, no murmurs
Abd: Soft, Nontender, No pulsatile mass
Neuro: Cranial nerves intact, muscle strength 5 out of 5 throughout, sensation intact throughout, speech is clear. No cerebellar abnormalities.
Skin: Warm, dry, no rash
Extremities: pulses equal b/l, no edema
Course
Orders/Labs/Results
Orders:
Orders
10/24/24 07:20
CT HEAD STROKE ALERT W/o Cont Urgent
Comment:
Reason For Exam: R sided weakness
10/24/24 07:31
Electrocardiogram (*1) Urgent
Reason for Study: Other
Other Reason for Exam: Possible Stroke
Bedside Glucose- Treatment ONCE
Cardiac Monitoring- Treatment ONCE
EKG- Treatment ONCE
IV Insert/Care/Rem.- Treatment PRN
Vital Signs As Directed
Frequency: Other
Weight As Directed
Frequency: Once
Comment: ZERO STRETCHER SCALE FOR ACCURATE WEIGHT
O2 Therapy [RESP] Urgent
Titrate/Wean O2 to maintain O2 sat greater than (%): 93
Special Instructions: MAINTAIN CONTINUOUS O2 SATS > OR = 93%
10/24/24 07:33
Meclizine [Antivert] 25 mg PO NOW STA
Ondansetron Injectable [Zofran] 4 mg IV NOW STA
10/24/24 07:38
Complete Blood Count/With Diff Urgent
PTT Urgent
Prothrombin Time Urgent
10/24/24 08:02
CT HEAD/NECK ANG STROKE ALERT Urgent
Reason For Exam: stenosis
10/24/24 08:14
Comprehensive Metabolic Panel Urgent
Troponin I Urgent
Abnormal Lab Results
10/24/24 10/24/24
07:38 08:14
RBC 4.52 L 10^6/uL
(4.70-6.10)
MCH 33.0 H pg
(27.0-31.0)
BUN 30 H mg/dl
(9-20)
10/24/24 07:38
10/24/24 08:14
Vital Signs
Initial and Last Documented VS:
Initial Vital Signs
Pulse Resp
55 23
10/24/24 07:29 10/24/24 07:29
Last Documented Vital Signs
Pulse Resp BP Pulse Ox
54 14 141/77 99
10/24/24 10:00 10/24/24 10:00 10/24/24 10:00 10/24/24 09:29
MDM/Problems Addressed
Differential Diagnosis Includes:
Peripheral vertigo, central vertigo, intracranial bleed
MDM/Problems Addressed:
Patient presents with sudden onset of severe vertigo. There is some question of right-sided weakness in the prehospital setting but difficult to fully assess due to Parkinson's. Stroke alert called initially primarily because the patient was
complaining of a significant headache along with the onset of vertigo suffice primary concern was to rule out a hemorrhagic event. Initial head CT is unremarkable. Patient was evaluated by neurology. CTA was ordered and obtained. This shows no
vascular abnormalities. Patient treated for peripheral vertigo with meclizine. His symptoms have fully resolved. He ambulated about the department without difficulty. Stable for discharge home.
*Radiology
Radiology exam reviewed: radiology read reviewed
*Pulse Oximetry
Patient hypoxic: no
*Critical Care Note
Total Time (30-74mins, 75-104mins- exclusive of procedures): Not Applicable
ED Attending Note
-
Portions of this chart may have been created with voice recognition software.� Occasional wrong word or��sound alike� substitutions may have occurred due to the inherent limitations of voice recognition software.
Discharge Plan
Departure
Patient Disposition: Home (Routine Discharge)
Date of Disposition: 10/24/24
Time of Disposition: 09:50
Patient with high blood pressure during this ER visit?: Yes
Condition: Good
Discharge Problem:
Vertigo
Instructions: Vertigo (a Type of Dizziness) (DC), BLOOD PRESSURE
Prescriptions:
No Action
tamsulosin 0.4 MG capsule
0.4 mg PO BID
Fish Oil 1 EACH capsule,delayed release(DR/EC)
4 cap PO DAILY
rasagiline 1 MG tablet
1 mg PO DAILY
pantoprazole 40 MG tablet,delayed release (DR/EC)
40 mg PO QPM
Refresh Classic (PF) 10 DROPS dropperette
1 drops BOTH EYES TID
amantadine HCl 100 MG capsule
200 mg PO BID
polyethylene glycol 3350 17 GRAMS powder in packet
17 grams PO DAILY
loratadine 10 MG tablet
10 mg PO NOON
aspirin 81 MG tablet,delayed release (DR/EC)
81 mg PO HS
therapeutic multivitamin Tablet
1 tab PO DAILY
calcium polycarbophil [FiberCon] 625 mg Tablet
5,000 mg PO HS
carbidopa-levodopa 25-100 mg Tablet
1 tab PO AC
Praluent Pen 150 mg/mL Pen Injector
150 mg SC Q2W
Linzess 145 mcg Capsule
145 mcg PO DAILY @ 0600 Qty: 30 0RF
Referrals:
Vargas Ba DO [Family Provider] -
Interventions
Interventions:
*Risk Screen - Suicide Last Done: 10/24/24 10:09
*General Assessment Last Done: 10/24/24 07:57
*Neglect/Abuse Screening Last Done: 10/24/24 08:00
ED- Fall Risk Assessment Last Done: 10/24/24 10:09
*ED COVID-19 Vaccine History Last Done: 10/24/24 08:00
*Nursing Disposition Last Done: 10/24/24 10:09
ED- Pulmonary Assessment Last Done: 10/24/24 09:29
ED- Neurological Assessment Last Done: 10/24/24 09:29
ED- Cardiac Assessment Last Done: 10/24/24 09:29
ED Swallowing Screen Last Done: 10/24/24 09:29
Discharge Date and Time
Print Language: ALGERIAN
[2024-10-24 07:37] VITALS: BP 172/144
--- NOTE | 2024-10-24 07:40 | CON.NEURO ---
Consultation
Order
Date of Consultation: 10/24/24
Requesting Provider: Romeo Gibbons DO
Reason for Consult: Stroke alert
Called in at 7:19 AM
Neurology Consultation Note.
HPI: This is a 69-year-old man who presented to [facility] on October 24, 2024 with vertigo.
According to the patient he developed an acute sensation of spinning with associated dizziness, headache and nausea around 06:45 AM today while dressing at a gym. The vertigo is worse with head movements. No reports of motor, sensory, speech or
visual deficits. Patient had similar episodes lasting for several hours in 02/2023
Reported VS by EMS: Initially normotensive (112-118 systolic), then increased to 210 systolic, FS 91 mg/dL.
According to the patient he has not taken his morning medications yet.
ER VS: 172/144, 55,
EKG: Sinus bradycardia, RBBB
PDMP:Lorazepam 0.5 Mg 30 tabs filled in on 07/19/2024
Labs: Platelets [address] head wo contrast�mild atrophy
PMH: IPD, CAD, DLP, GERD, Raynaud's syndrome, levoconvex scoliosis, nephrolithiasis, BPH
PSH PTCI, RBBB, bowel resection, R inguinal hernia repair
SH:, non-smoker
All: Statins, Neupro patch
ROS: Positive for vertigo, nausea, resting tremor.
General: Well developed. In no acute distress.
Cardio: Regular rate. Lower and upper extremity acrocyanosis (chronic)
Neuro:
Mental Status: Alert, oriented to place, and date. Follows simple requests . Comprehension, naming, and repetition intact.
Cranial Nerves: Pupils are equally round and reactive to light. EOMs full. BTT BL No ptosis. Face symmetric. Normal hearing AU. No dysarthria.
Motor: Increased motor tone right greater than left . no PT or leg drift
Sensory: No extinction to double simultaneous stimuli
Coordination: Right greater than left tremors.
Gait: deferred
Assessment and Plan:
I. Vertigo. Not a candidate for IV thrombolysis due to lack of stroke syndrome
II. Idiopathic Parkinson disease
III. Hypertensive urgency
-Continue Telemetry monitoring
-Restart home dose Sinemet, rasagiline and amantadine
-PT
-Meclizine 25 mg every 8 hours as needed
-Reglan 10 mg IV as needed
-Further recommendations will depend on clinical course
-DVT prophylaxis.
I personally reviewed all radiology and labs along with past medical records pertinent to current medical problems. Total time spent in patient care is 60 minutes.
Thank you for allowing us to participate in the care of this patient. We will continue to follow. Please do not hesitate to contact us with any questions or concerns.
Subjective/Objective
Subjective Data
Date of Service: October 24, 2024
Objective Data
Patient Allergies
rosuvastatin calcium [From Crestor] Allergy (Verified 04/03/24 03:15)
elevated liver enzymes
Sfmjmna-GUG-IzA Reductase Inhibitor [Hdkaksf-Wfs-Jnw Reductase Inhibitor] Allergy (Verified 04/03/24 03:15)
Elevated LFTS
Medications
-
Home Medications
�Medication �Instructions �Recorded
[id number]-epa-fish oil 120 4 cap PO DAILY Supplement 03/05/14
mg-180 mg-60 mg-1,200 mg capsule,
DR (Fish Oil)
tamsulosin 0.4 mg capsule 0.4 mg PO BID Urinary Issue 03/05/14
rasagiline 1 mg tablet 1 mg PO DAILY Neurological 08/25/18
Condition
pantoprazole 40 mg tablet,delayed 40 mg PO QPM Gastrointestinal Issue 09/21/18
release
polyvinyl alcohol-povidone (PF) 1 drops BOTH EYES TID Eye Condition 09/21/18
1.4 %-0.6 % eye drops in a
dropperette (Refresh Classic (PF))
amantadine HCl 100 mg capsule 200 mg PO BID Neurological 05/25/21
Condition
loratadine 10 mg tablet 10 mg PO NOON Allergies 05/25/21
polyethylene glycol 3350 17 gram 17 grams PO DAILY Constipation 05/25/21
oral powder packet
aspirin 81 mg tablet,delayed 81 mg PO HS Blood Clot 07/21/21
release Prevention/Tx
alirocumab 150 mg/mL subcutaneous 150 mg SC Q2W High Cholesterol 04/03/24
pen injector (Praluent Pen)
calcium polycarbophil 625 mg 5,000 mg PO HS Supplement 04/03/24
tablet (FiberCon)
carbidopa 25 mg-levodopa 100 mg 1 tab PO AC Neurological Condition 04/03/24
tablet
therapeutic multivitamin 1 tab PO DAILY Supplement 04/03/24
linaclotide 145 mcg capsule 145 mcg PO DAILY @ 0600 #30 caps 04/04/24
(Linzess)
Vital Signs and Labs
-
Vital Signs and Labs:
Vital Signs
Pulse Resp BP
72 30 172/144
10/24/24 07:45 10/24/24 07:45 10/24/24 07:37
Lab Results
10/24/24 07:38
Sodium Cancelled 10/24/24 07:38
Potassium Cancelled 10/24/24 07:38
BUN Cancelled 10/24/24 07:38
Glucose Cancelled 10/24/24 07:38
Calcium Cancelled 10/24/24 07:38
Home Medications
-
Home Medications
[id number]-epa-fish oil 120 mg-180 mg-60 mg-1,200 mg capsule, DR (Fish Oil) 4 cap PO DAILY Supplement 03/05/14
tamsulosin 0.4 mg capsule 0.4 mg PO BID Urinary Issue 03/05/14
rasagiline 1 mg tablet 1 mg PO DAILY Neurological Condition 08/25/18
pantoprazole 40 mg tablet,delayed release 40 mg PO QPM Gastrointestinal Issue 09/21/18
polyvinyl alcohol-povidone (PF) 1.4 %-0.6 % eye drops in a dropperette (Refresh Classic (PF)) 1 drops BOTH EYES TID Eye Condition 09/21/18
amantadine HCl 100 mg capsule 200 mg PO BID Neurological Condition 05/25/21
loratadine 10 mg tablet 10 mg PO NOON Allergies 05/25/21
polyethylene glycol 3350 17 gram oral powder packet 17 grams PO DAILY Constipation 05/25/21
aspirin 81 mg tablet,delayed release 81 mg PO HS Blood Clot Prevention/Tx 07/21/21
alirocumab 150 mg/mL subcutaneous pen injector (Praluent Pen) 150 mg SC Q2W High Cholesterol 04/03/24
calcium polycarbophil 625 mg tablet (FiberCon) 5,000 mg PO HS Supplement 04/03/24
carbidopa 25 mg-levodopa 100 mg tablet 1 tab PO AC Neurological Condition 04/03/24
therapeutic multivitamin 1 tab PO DAILY Supplement 04/03/24
linaclotide 145 mcg capsule (Linzess) 145 mcg PO DAILY @ 0600 #30 caps 04/04/24
[2024-10-24] MEDS: ZOFRAN 4 MG IV (07:47)
[2024-10-24 07:52] VITALS: BP 173/142
[2024-10-24 07:52] LABS: % Basophils 1.7 % (0-2); % Eosinophils 3.8 % (0-6); % Immature Granulocytes 0.2 % (0-0.5); % Lymphocytes 31.4 % (20.5-51.1); % Monocytes 9.2 % (1.7-9.3); % Neutrophils 53.7 % (42.2-75.2); Absolute Basophils 0.1 10^3/uL (0-0.2); Absolute Eosinophils 0.2 10^3/uL (0-0.7); Absolute Lymphocytes 1.7 10^3/uL (1.2-3.4); Absolute Monocytes 0.5 10^3/uL (0.1-0.6); Absolute Neutrophils 2.9 10^3/uL (1.4-6.5); Hematocrit 41.9 % (39.0-52.0); Hemoglobin 14.9 g/dL (13.0-18.0); Mean Corp Hgb Conc. 35.6 g/dL (33.0-37.0); Mean Corpuscular Volume 92.7 fL (80.0-94.0); Mean Platelet Volume 9.2 fL (7.4-10.4); Nucleated Red Blood Cells % 0 % (-); Platelet Count 169 10^3/uL (130-400); Red Blood Cell Count 4.52 10^6/uL (4.70-6.10); Red Cell Dist. Width 12.4 % (11.5-14.5); White Blood Cell Count 5.3 10^3/uL (4.8-10.8)
[2024-10-24 07:55] VITALS: BP 173/112
[2024-10-24 08:00] VITALS: BP 159/100
[2024-10-24 08:04] LABS: APTT 26.8 Sec (23.4-35.0); INR 1.01; PT 13.8 Sec (11.4-14.6)
[2024-10-24] MEDS: ANTIVERT 25 MG PO (08:04)
[2024-10-24 08:45] LABS: ALT (SGPT) 20 U/L (0-50); AST (SGOT) 28 U/L (17-59); Albumin 4.9 g/dl (3.5-5.0); Alkaline Phosphatase 58 U/L (38-126); Blood Urea Nitrogen 30 mg/dl (9-20); Calcium 10.2 mg/dl (8.4-10.2); Carbon Dioxide 26 mmol/L (22-30); Chloride 102 mmol/L (98-107); Glucose 97 mg/dl (70-99); Potassium 4.5 mmol/L (3.5-5.1); Sodium 139 mmol/L (135-145); Total Protein 7.4 g/dl (6.3-8.2); eGFR > 60.00
[2024-10-24 08:56] LABS: Troponin I < 0.012 ng/ml
[2024-10-24 09:35] VITALS: BP 148/88
[2024-10-24 10:00] VITALS: BP 141/77
== END 2024-10-24 09:54 | disposition home or self-care (01) ==
LOC: EMR 07:18
PROVIDERS: EMERGENCY PHYSICIAN Emergency Medicine; FAMILY PHYSICIAN Family Medicine; OTHER PHYSICIAN Psychiatry & Neurology Neurology
DX: R42 Dizziness and giddiness (principal); I10 Essential (primary) hypertension
CPT/HCPCS: 99285; 96374; 70450; 70496; 70498; 80053; 84484; 85025; 85610; 85730; 93005; Q9967

== ENCOUNTER → 2024-11-27 10:09 | Outpatient (REF) | payer MEDICARE, OTHER, SELFPAY | LOC: HWRCS 10:09 | PROVIDERS: ATTENDING PHYSICIAN Internal Medicine Cardiovascular Disease; FAMILY PHYSICIAN Family Medicine | DX: I25.10 Atherosclerotic heart disease of native coronary artery without angina pectoris (principal) | CPT/HCPCS: 93306 ==

== ENCOUNTER → 2025-08-28 10:30 | Outpatient (REF) | payer MEDICARE, OTHER, SELFPAY | LOC: PAVMRI 10:30 | PROVIDERS: ATTENDING PHYSICIAN Internal Medicine; FAMILY PHYSICIAN Family Medicine | DX: H53.2 Diplopia (principal); H53.8 Other visual disturbances | CPT/HCPCS: 70553; A9575 ==